=== PATIENT | female | born 1945 | race African-American/Black ===

== ENCOUNTER → 2019-03-03 | Outpatient (CLI) | payer MEDICARE, OTHER ==
[2016-09-02 15:00] VITALS: BP 132/72
[~2019-03-03] MED LIST: AMLO2.5T5 PO; ASCO500T PO; CLIN300C3 PO; CLON1TAB11 PO; CLON2TAB9 PO; DICL100G18 TP; DIPH25CA58 PO; LACT1CAP38 PO; LEVO500T59 PO; LITH300C PO; LITH300T30 PO; NIFE30TA17 PO; OXYB5TAB PO; PHEN100T82 PO; PROP20TA PO; SUVO10TA PO
--- NOTE | 2019-03-03 08:46 | RAD ---
EXAM: Right knee, 2 views. HISTORY: Pain. COMPARISON: None. FINDINGS: 2 views of the right knee are obtained. There is severe medial and patellofemoral compartment predominant tricompartmental spurring. There is medial compartment joint space narrowing. There is a moderate joint effusion. IMPRESSION: 1. Severe tricompartmental osteoarthritis of the right knee. 2. Moderate right knee effusion. Electronically signed by: Sahara Oh MD (03/03/2019 8:43 AM) [facility]
== END | disposition home or self-care (01) ==
LOC: PMG 07:54
PROVIDERS: ATTEND Family Medicine
DX: M17.11 Unilateral primary osteoarthritis, right knee (principal); M25.461 Effusion, right knee
CPT/HCPCS: 73560

== ENCOUNTER 2019-04-03 17:59 | Emergency (ER) | payer MEDICARE, OTHER ==
[~2019-04-03] VITALS: Ht 156.2 cm; Wt 76.8 kg
[~2019-04-03 17:59] MED LIST changes: +ASCO-219 PO; -ASCO500T PO; -OXYB5TAB PO; +OXYB5TAB2 PO
--- NOTE | 2019-04-03 18:30 | PHYS DOC ---
Past History Past Medical History: Other Past Surgical History: Other Alcohol Use: None Drug Use: None Adult General Chief Complaint Chief Complaint: MECHANICAL FALL HPI HPI 73-year-old female presents after fall at home. The patient was recently diagnosed with [place]'s disease. She had a car about 45 minutes ago and was walking across the yard. She tripped over her shoe and fell. The patient's granddaughter witnessed this most concerned she might hit her head on the edge of the sidewalk as she felt very close to sidewalk. The patient has a small 2 cm superficial laceration of the right parietal scalp. She denies dizziness, headache, vomiting. She has been able to get up and walk at baseline. The family was just advised to get checked out if she had any falls due to her [place]'s disorder. Review of Systems Review of Systems Constitutional: Denies fever or chills [] Eyes: Denies change in visual acuity, redness, or eye pain [] HENT: Denies nasal congestion or sore throat [] Respiratory: Denies cough or shortness of breath [] Cardiovascular: No additional information not addressed in HPI [] GI: Denies abdominal pain, nausea, vomiting, bloody stools or diarrhea [] : Denies dysuria or hematuria [] Musculoskeletal: Denies back pain or joint pain [] Integument: Laceration right scalp[] Neurologic: Denies headache, focal weakness or sensory changes [] Endocrine: Denies polyuria or polydipsia [] All other systems were reviewed and found to be within normal limits, except as documented in this note. Allergies Allergies Allergies Coded Allergies Type Severity Reaction Last Updated Verified egg Allergy Severe 06/10/16 Yes Penicillins Allergy Intermediate 06/09/16 Yes Sulfa (Sulfonamide Antibiotics) Allergy Intermediate 06/09/16 Yes aspirin Allergy Intermediate 06/09/16 Yes chocolate flavor Allergy Intermediate 06/09/16 Yes codeine Allergy Intermediate 06/09/16 Yes latex Allergy Intermediate 06/09/16 Yes diphenhydramine Allergy Mild anxiety 04/03/19 Yes Physical Exam Physical Exam Constitutional: Well developed, well nourished, no acute distress, non-toxic appearance. [] HENT: Normocephalic, bilateral external ears normal, oropharynx moist, no oral exudates, nose normal. [] Eyes: PERRLA, EOMI, conjunctiva normal, no discharge. [] Neck: Normal range of motion, no tenderness, supple, no stridor. [] Cardiovascular:Heart rate regular rhythm, no murmur [] Lungs & Thorax: Bilateral breath sounds clear to auscultation [] Abdomen: Bowel sounds normal, soft, no tenderness, no masses, no pulsatile masses. [] Skin: Centimeter superficial laceration of the right parietal scalp, bleeding controlled.[] Back: No tenderness, no CVA tenderness. [] Extremities: No tenderness, no cyanosis, no clubbing, ROM intact, no edema. [] Neurologic: Choria movements. Alert and oriented X 3, normal motor function, normal sensory function, no focal deficits noted. [] Psychologic: Affect normal, judgement normal, mood normal. [] EKG EKG [] Radiology/Procedures Radiology/Procedures [] Impressions: Exam: CT head INDICATION: Fall TECHNIQUE: Sequential axial images through the head were obtained without the administration of IV contrast. Comparisons: None FINDINGS: No focal parenchymal lesion or hemorrhage is identified. There is no midline shift or sulcal effacement. Patchy hypodensity within the periventricular white matter, representing chronic ischemic change similar to prior study. No acute vascular territory infarction is identified. Cormier-white distinction is preserved. The ventricular system is within normal limits without compression hydrocephalus. The basal cisterns are well maintained. There is extracranial soft tissue contusion in the right frontal scalp. The visualized portions of the paranasal sinuses and mastoid air cells are well-pneumatized. No acute fractures. IMPRESSION: Cranial soft tissue contusion in the right frontal scalp without underlying osseous or intracranial abnormality. Exposure: One or more of the following in the visualized dose reduction techniques were utilized for this examination: 1. Automated exposure control 2. Adjustment of the MA and/or KV according to patient size Use of iterative of reconstructive technique Electronically signed by: Nick Beckman MD (04/03/2019 7:08 PM) [facility] DICTATED AND SIGNED BY: NICK BECKMAN MD DATE: 04/03/191907 CC: JONATHAN WINTER DO; MARGARET GRAY MD ~ Course & Med Decision Making Course & Med Decision Making Pertinent Labs and Imaging studies reviewed. (See chart for details) The patient's head CT is negative. Her superficial wound has been cleaned. There was no bleeding. I do not believe repair such as skin glue or hetal as necessary. Patient is stable for discharge at this time. [] Dragon Disclaimer Dragon Disclaimer This electronic medical record was generated, in whole or in part, using a voice recognition dictation system. Departure Departure: Impression: Primary Impression: Fall from slip, trip, or stumble Disposition: 01 HOME, SELF-CARE Condition: STABLE Referrals: MARGARET GRAY MD (PCP) Patient Instructions: Fall Prevention and Home Safety, [id number] Problem Qualifiers Primary Impression: Fall from slip, trip, or stumble Encounter type: initial encounter Qualified Codes: W01.0XXA - Fall on same level from slipping, tripping and stumbling without subsequent striking against object, initial encounter JONATHAN WINTER DO Apr 03, 2019 18:29
[2019-04-03 19:05] VITALS: BP 131/79
--- NOTE | 2019-04-03 19:10 | RAD ---
Exam: CT head INDICATION: Fall TECHNIQUE: Sequential axial images through the head were obtained without the administration of IV contrast. Comparisons: None FINDINGS: No focal parenchymal lesion or hemorrhage is identified. There is no midline shift or sulcal effacement. Patchy hypodensity within the periventricular white matter, representing chronic ischemic change similar to prior study. No acute vascular territory infarction is identified. Cormier-white distinction is preserved. The ventricular system is within normal limits without compression hydrocephalus. The basal cisterns are well maintained. There is extracranial soft tissue contusion in the right frontal scalp. The visualized portions of the paranasal sinuses and mastoid air cells are well-pneumatized. No acute fractures. IMPRESSION: Cranial soft tissue contusion in the right frontal scalp without underlying osseous or intracranial abnormality. Exposure: One or more of the following in the visualized dose reduction techniques were utilized for this examination: 1. Automated exposure control 2. Adjustment of the MA and/or KV according to patient size Use of iterative of reconstructive technique Electronically signed by: Nick Melissa MD (04/03/2019 7:08 PM) [facility]
== END 2019-04-03 20:09 | disposition home or self-care (01) ==
LOC: ER 17:59
DX: S01.01XA Laceration without foreign body of scalp, initial encounter (principal); G10 Huntington's disease; Z88.6 Allergy status to analgesic agent; Z91.012 Allergy to eggs; Z88.5 Allergy status to narcotic agent; Z88.0 Allergy status to penicillin; Z88.2 Allergy status to sulfonamides; Z88.8 Allergy status to other drugs, medicaments and biological substances; Z91.018 Allergy to other foods; W01.0XXA Fall on same level from slipping, tripping and stumbling without subsequent striking against object, initial encounter; Y93.01 Activity, walking, marching and hiking; Y92.098 Other place in other non-institutional residence as the place of occurrence of the external cause; Y99.8 Other external cause status
CPT/HCPCS: 70450; 99284-25

== ENCOUNTER → 2019-06-10 | Outpatient (CLI) | payer MEDICARE, OTHER ==
--- NOTE | 2019-06-10 17:57 | RAD ---
Examination: KNEE RIGHT 2V, TIBIA FIBULA RIGHT History: Right knee pain Comparison/Correlation: 03/03/2019 bilateral knee x-ray exam Findings: 3 view right knee x-ray exam was performed. Two-view right tibia-fibula x-ray exam was performed. Moderate sized knee joint effusion is present. Patellofemoral compartment degenerative remodeling and spurring is notable. Severe medial compartment narrowing of the right knee joint is present with varus deformity. Spurring is notable in tricompartmental distribution. No significant lateral compartment narrowing. No fracture or bony destructive findings. Impression: Advanced degenerative changes of the right knee particularly at the medial and patellofemoral compartments. Tricompartmental spurring is severe. Electronically signed by: Georgi Gonsalves MD (06/10/2019 5:54 PM) [facility]
--- NOTE | 2019-06-10 17:57 | RAD ---
Examination: KNEE RIGHT 2V, TIBIA FIBULA RIGHT History: Right knee pain Comparison/Correlation: 03/03/2019 bilateral knee x-ray exam Findings: 3 view right knee x-ray exam was performed. Two-view right tibia-fibula x-ray exam was performed. Moderate sized knee joint effusion is present. Patellofemoral compartment degenerative remodeling and spurring is notable. Severe medial compartment narrowing of the right knee joint is present with varus deformity. Spurring is notable in tricompartmental distribution. No significant lateral compartment narrowing. No fracture or bony destructive findings. Impression: Advanced degenerative changes of the right knee particularly at the medial and patellofemoral compartments. Tricompartmental spurring is severe. Electronically signed by: Georgi Gonsalves MD (06/10/2019 5:54 PM) [facility]
== END | disposition home or self-care (01) ==
LOC: EDBD 11:54 → PMG 11:54
PROVIDERS: ATTEND Family Medicine
DX: S89.91XA Unspecified injury of right lower leg, initial encounter (principal); M17.11 Unilateral primary osteoarthritis, right knee; M25.461 Effusion, right knee; M25.861 Other specified joint disorders, right knee; M76.891 Other specified enthesopathies of right lower limb, excluding foot; W19.XXXA Unspecified fall, initial encounter; Y93.89 Activity, other specified; Y92.89 Other specified places as the place of occurrence of the external cause; Y99.8 Other external cause status
CPT/HCPCS: 73560; 73590

== ENCOUNTER 2019-08-14 19:01 | Emergency (ER) | payer MEDICARE, OTHER ==
[~2019-08-14] VITALS: Ht 156.2 cm; Wt 76.8 kg
[~2019-08-14 19:01] MED LIST changes: -NIFE30TA17 PO; +NIFE30TA95 PO; +OXYB-36 PO; -OXYB5TAB2 PO
--- NOTE | 2019-08-14 19:07 | PHYS DOC ---
Past History Past Medical History: Hypertension, Other Additional Past Medical Histor: remington disease Past Surgical History: Other Alcohol Use: None Drug Use: None Adult General Chief Complaint Chief Complaint: ".. I was walking... I tripped... "I fell.." ".. I hit...my head..... cabnet..."...".. We seen her fall.. it was yuly of glancing blow to top of her head.. she did nt black out or anything... but it keep bleeding... " ( Daughters) [facility] HPI Patient is a 74 year old female who presents with above hx and complaints of head injury. Pt. denies loss of consciousness. Has Laceration top of scalp with hematoma. Laceration is approximately 4 cm with surrounding hematoma. Pt. had medical hx. [place], dementia, hypertension and gait disorder. Pt. follows with Dr. Bentley. History of travel. No history immunosuppression. No history of change in meds. Unsure of last tetanus vaccination Review of Systems Review of Systems Constitutional: Denies fever or chills [] Eyes: Denies change in visual acuity, redness, or eye pain [] HENT: Denies nasal congestion or sore throat [] Respiratory: Denies cough or shortness of breath [] Cardiovascular: No additional information not addressed in [facility] [] GI: Denies abdominal pain, nausea, vomiting, bloody stools or diarrhea [] : Denies dysuria or hematuria [] Musculoskeletal: Denies back pain or joint pain [] Integument: Denies rash or skin lesions [] Neurologic: Complaints of headache at the site of laceration, denies, focal weakness or sensory changes [] Endocrine: Denies polyuria or polydipsia [] All other systems were reviewed and found to be within normal limits, except as documented in this note. Family History Family History Noncontributory to presentation Current Medications Current Medications Nursing for home medications Allergies Allergies Allergies Coded Allergies Type Severity Reaction Last Updated Verified egg Allergy Severe 06/10/16 Yes Penicillins Allergy Intermediate 06/09/16 Yes Sulfa (Sulfonamide Antibiotics) Allergy Intermediate 06/09/16 Yes aspirin Allergy Intermediate 06/09/16 Yes chocolate flavor Allergy Intermediate 06/09/16 Yes codeine Allergy Intermediate 06/09/16 Yes latex Allergy Intermediate 06/09/16 Yes diphenhydramine Allergy Mild anxiety 04/03/19 Yes Physical Exam Physical Exam Constitutional: Moderate acute distress, non-toxic appearance. [] HENT: Normocephalic, 4 cm laceration and surrounding hematoma on top of head, blood in left external ear,, no blood in TMs, oropharynx moist, no oral exudates, nose normal. [] Eyes: PERRLA, EOMI, conjunctiva normal, no discharge. Arcus Neck: Normal range of motion, no tenderness, supple, no stridor. [] Cardiovascular:Heart rate regular rhythm, no murmur. PMI to the left Lungs & Thorax: Bilateral breath sounds bibasally wheezing auscultation [] Abdomen: Bowel sounds normal, soft, no tenderness, no masses, no pulsatile masses. Old scar . Skin: Warm, dry, no erythema, no rash. [] Complaints of laceration. Back: No tenderness, no CVA tenderness. [] Extremities: No tenderness, no cyanosis, no clubbing, ROM intact, no edema. [] Neurologic: Alert and oriented X 3, distal motor and sensory, no new gross focal deficits noted by family. []Wide gait. Discoordinated. Tremor Psychologic: Affect anxious, judgement impaired, mood normal. [] EKG EKG [] Radiology/Procedures Radiology/Procedures [][place] [address] IMAGING REPORT Signed PATIENT: RAGHU ASTORGA ACCOUNT: [id number] : 1945 LOCATION: ER AGE: 74 SEX: F EXAM STATUS: REG ER ORD. PHYSICIAN: RAMIREZ DAI MD REASON: head injury, HIT TOP OF HEAD, H/O [place]'S DISEASE. PROCEDURE: CT HEAD AND CERVICAL SPINE WO Exam: CT head and cervical spine without contrast INDICATION: Head injury TECHNIQUE: Sequential axial images through the head and cervical spine were obtained without the administration of IV contrast. Comparisons: None FINDINGS: Head: No focal parenchymal lesion or hemorrhage is identified. There is no midline shift or sulcal effacement. Patchy hypodensity in the periventricular white matter, similar when compared to the prior study. No acute vascular territory infarction is identified. Cormier-white distinction is preserved. The ventricular system is within normal limits without compression hydrocephalus. The basal cisterns are well maintained. The visualized portions of the paranasal sinuses and mastoid air cells are well-pneumatized. No acute fractures. Cervical spine: Evaluation is markedly limited secondary to extensive patient motion despite repeat scans. No fracture identified at C2, C3 or C4. Remainder of the cervical spine is unable to be evaluated. IMPRESSION: 1. No acute intracranial abnormality. 2. Evaluation of the cervical spine is markedly limited secondary to extensive patient motion despite repetitive scans. No apparent fracture is identified. Repeat imaging when patient's condition improves is recommended to reassess. Exposure: One or more of the following in the visualized dose reduction techniques were utilized for this examination: 1. Automated exposure control 2. Adjustment of the MA and/or KV according to patient size Use of iterative of reconstructive technique Electronically signed by: Nick Beckman MD (08/14/2019 9:09 PM) [facility] [place] [facility] DICTATED AND SIGNED BY: NICK BECKMAN MD DATE: 08/14/192108 CC: RAMIREZ DAI MD; MARGARET BENTLEY MD ~ Course & Med Decision Making Course & Med Decision Making Pertinent Labs and Imaging studies reviewed. (See chart for details) Suture note- 4 cm- scalp- area of laceration clean with normal saline and Betadine.. Injected laceration with 2% lidocaine. Reirrigated laceration with normal saline. Closed with 7 simple 3-0 Vicryl stitches sutures. Patient keep area clean and dry. Sutures will degrade with time. No direct water. Polysporin 4 times a day. Return if any concerns. Follow-up primary care. Polysporin to laceration site 4 x day. No direct water. Sutures will dissolve with time and inflammation. Return if any concerns. Follow up with primary. Head injury precaution. May use peroxide to clean hair and wound. Head injury precautions 1. Trip and Fall 2. Head Injury 3. 4 cm Laceration or centimeters top of the scalp [] Dragon Disclaimer Dragon Disclaimer This electronic medical record was generated, in whole or in part, using a voice recognition dictation system. Departure Departure: Disposition: 01 HOME/RESIDENCE PRIOR TO ADM Condition: STABLE Referrals: MARGARET BENTLEY MD (PCP) Dragon Disclaimer This chart was dictated in whole or in part using Voice Recognition software in a busy, high-work load, and often noisy Emergency Department environment. It may contain unintended and wholly unrecognized errors or omissions. RAMIREZ DAI MD Aug 14, 2019 19:07
[2019-08-14] MEDS ORDERED: DIPHTH,PERTUSS(ACELL),TET TOX 0.5 ML DISP.SYRIN. VAX IM ONE (19:45)
[2019-08-14] MEDS ORDERED: LIDOCAINE 2% 20 ML VIAL. IJ ONE (19:45)
[2019-08-14 20:32] VITALS: BP 156/87
--- NOTE | 2019-08-14 21:12 | RAD ---
Exam: CT head and cervical spine without contrast INDICATION: Head injury TECHNIQUE: Sequential axial images through the head and cervical spine were obtained without the administration of IV contrast. Comparisons: None FINDINGS: Head: No focal parenchymal lesion or hemorrhage is identified. There is no midline shift or sulcal effacement. Patchy hypodensity in the periventricular white matter, similar when compared to the prior study. No acute vascular territory infarction is identified. Cormier-white distinction is preserved. The ventricular system is within normal limits without compression hydrocephalus. The basal cisterns are well maintained. The visualized portions of the paranasal sinuses and mastoid air cells are well-pneumatized. No acute fractures. Cervical spine: Evaluation is markedly limited secondary to extensive patient motion despite repeat scans. No fracture identified at C2, C3 or C4. Remainder of the cervical spine is unable to be evaluated. IMPRESSION: 1. No acute intracranial abnormality. 2. Evaluation of the cervical spine is markedly limited secondary to extensive patient motion despite repetitive scans. No apparent fracture is identified. Repeat imaging when patient's condition improves is recommended to reassess. Exposure: One or more of the following in the visualized dose reduction techniques were utilized for this examination: 1. Automated exposure control 2. Adjustment of the MA and/or KV according to patient size Use of iterative of reconstructive technique Electronically signed by: Nick Melissa MD (08/14/2019 9:09 PM) [facility]
[2019-08-15] MEDS ORDERED: LIDOCAINE 2% 20 ML VIAL. ONE (00:31)
== END 2019-08-14 21:34 | disposition home or self-care (01) ==
LOC: ER 19:01
DX: S01.01XA Laceration without foreign body of scalp, initial encounter (principal); I10 Essential (primary) hypertension; Z88.0 Allergy status to penicillin; Z88.2 Allergy status to sulfonamides; Z88.5 Allergy status to narcotic agent; Z91.040 Latex allergy status; Z91.018 Allergy to other foods; Z91.012 Allergy to eggs; W01.198A Fall on same level from slipping, tripping and stumbling with subsequent striking against other object, initial encounter; Y93.01 Activity, walking, marching and hiking; Y92.89 Other specified places as the place of occurrence of the external cause; Y99.8 Other external cause status
CPT/HCPCS: 12002; 70450; 72125; 90471; 90715; 99284; J2001

== ENCOUNTER → 2019-09-26 | Outpatient (CLI) | payer MEDICARE, OTHER ==
[2019-09-26 15:59] LABS: BASO # 0.1 x10^3/uL (0.0-0.2); BASO % 1 % (0-3); EOS # 0.2 x10^3/uL (0.0-0.7); EOS % 2 % (0-3); LYMPH # 2.4 x10^3/uL (1.0-4.8); LYMPH % 23 % (24-48); MEAN CORPUSCULAR HEMOGLOBIN 28 pg (25-35); MEAN CORPUSCULAR HGB CONC 31 g/dL (31-37); MEAN CORPUSCULAR VOLUME 90 fL (79-100); MONO # 0.8 x10^3/uL (0.0-1.1); MONO % 8 % (0-9); NEUT # 6.7 x10^3uL (1.8-7.7); NEUT % 66 % (31-73); PLATELET COUNT 271 x10^3/uL (140-400); RED BLOOD COUNT 4.21 x10^6/uL (3.50-5.40); WHITE BLOOD COUNT 10.1 x10^3/uL (4.0-11.0)
[2019-09-26 16:08] LABS: ALBUMIN 3.6 g/dL (3.4-5.0); ALBUMIN/GLOBULIN RATIO 0.9 (1.0-1.7); C REACTIVE PROTEIN 65.2 mg/L (0-3.3); CREATININE 0.9 mg/dL (0.6-1.0); GFR 73.9; POTASSIUM 3.9 mmol/L (3.5-5.1); TOTAL BILIRUBIN 0.8 mg/dL (0.2-1.0); TOTAL PROTEIN 7.8 g/dL (6.4-8.2)
--- NOTE | 2019-09-26 16:19 | RAD ---
Exam: CT abdomen and pelvis without contrast INDICATION: Nausea vomiting, unable to eat for 4 days TECHNIQUE: Sequential axial images through the abdomen and pelvis obtained without IV contrast. Sagittal and coronal reformatted images were reconstructed from the axial data and reviewed. Comparisons: None FINDINGS: Heart size is normal. There is a small pericardial effusion. Strandy opacities the lung bases bilaterally, likely atelectasis. No pleural effusion. Evaluation of the solid organs is limited secondary to noncontrast technique. Liver, spleen, pancreas, gallbladder and adrenals are unremarkable. No perinephric inflammation or hydronephrosis. No renal or ureteral calculi are identified. Bladder is partially distended and not well evaluated. Uterus is absent. No abnormal adnexal mass. A few scattered diverticula noted throughout the colon with mild inflammatory fat stranding at the posterior aspect of the ascending colon. Appendix is normal. No free intra-abdominal air or fluid. No obstruction. Abdominal aorta has a normal course and caliber. No enlarged abdominal lymph nodes are identified. No suspicious osseous lesions or acute fractures. IMPRESSION: Few scattered diverticula in the colon with mild fat stranding adjacent to some diverticula in the ascending colon. Findings may relate to a mild diverticulitis. No evidence for perforation or abscess. Exposure: One or more of the following in the visualized dose reduction techniques were utilized for this examination: 1. Automated exposure control 2. Adjustment of the MA and/or KV according to patient size 3. Use of iterative of reconstructive technique FOR INTERNAL CODING PURPOSES Critical result: Findings discussed with RUBEN KHOURY at 09/26/2019 4:14 PM. RESULT CODE: (C) Electronically signed by: Nick Melissa MD (09/26/2019 4:16 PM) [id number]
[2019-09-27 02:07] LABS: HEMOGLOBIN A1C 6.5 % (4.8-5.6)
== END | disposition home or self-care (01) ==
LOC: CT 15:13
PROVIDERS: ATTEND Registered Nurse
DX: K57.30 Diverticulosis of large intestine without perforation or abscess without bleeding (principal); I31.3 Pericardial effusion (noninflammatory); N32.89 Other specified disorders of bladder
CPT/HCPCS: 36415; 74176; 80053; 82150; 83036; 83690; 85025; 86140

== ENCOUNTER 2021-03-25 11:41 | Emergency (ER) | payer MEDICARE, OTHER ==
[~2021-03-25] VITALS: Ht 156.2 cm; Wt 76.8 kg
[~2021-03-25 11:41] MED LIST changes: -ASCO-219 PO; +ASCO500T53 PO
--- NOTE | 2021-03-25 12:35 | PHYS DOC ---
Past History Past Medical History: Hypertension, Other Additional Past Medical Histor: kelly disease Past Surgical History: , Hysterectomy, Other Alcohol Use: None Drug Use: None Adult General Chief Complaint Chief Complaint: UPPER EXTREMITY PAIN HPI HPI Patient is a 75-year-old female who presents with daughter who is primary caregiver for a fall. 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 Daughter who takes care of patient reports that she was attempting to transfer from wheelchair to bed when patient accidentally fell forward landing on her right arm. She did not hit her head, no loss of consciousness or other concerning sequelae from fall such as nausea or vomit or reported vision changes noted. Patient had excruciating pain focal to right upper extremity with palpable abnormality which concerned daughter prompting her to bring patient in for evaluation. Review of Systems Review of Systems Fourteen body systems of review of systems have been reviewed. See HPI for pertinent positives and negative responses, other antonio all other systems are negative, non-pertinent or non-contributory Allergies Allergies Allergies Coded Allergies Type Severity Reaction Last Updated Verified egg Allergy Severe 06/10/16 Yes Penicillins Allergy Intermediate 06/09/16 Yes Sulfa (Sulfonamide Antibiotics) Allergy Intermediate 06/09/16 Yes aspirin Allergy Intermediate 06/09/16 Yes chocolate flavor Allergy Intermediate 06/09/16 Yes codeine Allergy Intermediate 06/09/16 Yes latex Allergy Intermediate 06/09/16 Yes diphenhydramine Allergy Mild anxiety 04/03/19 Yes Physical Exam Physical Exam Constitutional: Patient is age-appropriate. Physically deconditioned and wheelchair and appears in pain. Has spastic movements consistent with known diagnosis of Kelly's disease HEENT: Head: Normocephalic and atraumatic. External ears unremarkable, negative gutiérrez sign Conjunctivae and EOM are normal. Pupils are equal, round, and reactive to light. Oropharynx is clear and moist. No hematomas or lacerations or abrasions to face or scalp OP clear, no blood, no malocclusion, dentition intact Nares clear, no nasal septal hematoma Midface stable Neck: C-spine midline nontender, no step-offs Cardiovascular: Normal rate, regular rhythm and normal heart sounds. Pulmonary/Chest: Effort normal and breath sounds normal. No respiratory distress. No wheezes. CTA bilaterally Abdominal: Soft. Bowel sounds are normal. Pt exhibits no distension. There is no tenderness. Musculoskeletal: Palpable bony tenderness and deformity present to right upper extremity near shoulder with limited range of motion of right shoulder joint in all planes due to pain Chest wall stable Pelvis stable and non-tender No vertebral TTP and spine without stepoffs Neurological: Pt is alert and oriented to person, place, and time. Moving all extremities willfully, able to wiggle all fingers and toes Alert and oriented x 3 Motor and sensory function intact Cranial nerves II through XII intact Spastic movements consistent with known diagnosis of Shelby's throughout entirety of exam Downgoing toes bilaterally with stimulation Skin: Skin is warm and dry. No abrasions, no lacerations Psychiatric: Behavior is appropriate for situation Current Patient Data Vital Signs Vital Signs Date Time Temp Pulse Resp B/P (MAP) Pulse Ox O2 Delivery O2 Flow Rate FiO2 03/25/21 12:10 97.7 62 20 137/108 93 Room Air EKG EKG [] Radiology/Procedures Radiology/Procedures AP chest. HISTORY: Fractured humerus AP view was taken of the chest. Patient's taken a poor inspiration. There is elevation the right diaphragm. There are no acute infiltrates. 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 There is no definite effusion. IMPRESSION: 1. Elevated right diaphragm. 2. No acute infiltrates. Electronically signed by: Mt Gracia MD (03/25/2021 1:13 PM) [facility] //////////////////////////// Right humerus 2 views, right forearm 2 views HISTORY: Pain after a fall Right forearm 2 views were taken of the left forearm. There is not evidence of an acute fracture. The elbow is incompletely evaluated. 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 If the elbow is concern additional views would be of benefit. IMPRESSION: 1. No fracture noted in the right forearm although incomplete evaluation the elbow. End impression, right humerus 2 views were taken of the right humerus. There is a comminuted fracture of the mid to proximal right humerus. There is mild displacement. IMPRESSION: 1. Fracture right humerus. Electronically signed by: Mt Gracia MD (03/25/2021 1:08 PM) [facility] /////////////////////////////////// INDICATION: Reason: post reduction - Dr Butt, ER - wanted the 1 view / Spl. Instructions: / History: COMPARISON: Same day IMPRESSION: Right humerus: Single view obtained. Comminuted fracture is identified at the diaphysis of the right humerus with mild displacement. Electronically signed by: José Miguel Nugent MD (03/25/2021 2:40 PM) [id number] Heart Score C/O Chest Pain: No Risk Factors: Risk Factors: DM, Current or recent (<one month) smoker, HTN, HLP, family history of CAD, obesity. Risk Scores: Risk Factors: DM, Current or recent (<one month) smoker, HTN, HLP, family history of CAD, obesity. Course & Med Decision Making Course & Med Decision Making Vitals stable. HPI physical exam and comprehensive ER work-up concerning for closed right humeral head fracture There is no emergent or surgical indication for hospital transfer for fixation in an elderly patient who would be a poor surgical candidate. I disclosed this with daughter who also agreed. As such, decision made to put patient in a sling immobilizer and follow-up with outpatient orthopedic services IM fentanyl administered and patient's right upper extremity placed in a sling immobilizer. A repeat x-ray was performed to ensure adequate positioning of bone due to patient's constant spastic Shelby's disease movements and concern for worsened malalignment I again reiterated need for close outpatient orthopedic follow-up with daughter who verbalized understanding. All questions and concerns addressed. I disclosed patient takes benzodiazepines but will also be in pain. She is high risk for concomitant benzodiazepine and narcotic use Caregiver knowledgeable on this. Instructions were made to start with extremely low-dose of narcotic pain medication, I advised cutting pills in half to see how patient tolerated both to avoid respiratory depression or possible . Patient's daughter again understood and verbalized instructions given and accepted prescription for such medication. Strict return precautions were disc ussed, all questions and concerns addressed prior to your departure [employer] Disclaimer Dragon Disclaimer This electronic medical record was generated, in whole or in part, using a voice recognition dictation system. Departure Departure: Impression: Primary Impression: Comminuted right humeral fracture Disposition: HOME / SELF CARE / HOMELESS Condition: STABLE Referrals: MARGARET GRAY MD (PCP) RAMIREZ RAMOS MD Additional Instructions: You were seen for a fracture or broken bone to your right arm. You need to be seen and followed up in the outpatient setting with our local orthopedic clinic, Dr. Ramos's information is attached. It is imperative that you contact your office immediately after ER departure and discuss with them that you had a " closed comminuted fracture to the mid to proximal right humerus". You should not use the affected body part until you follow up with orthopedics. You should use ice, prescribed pain medications, and elevation to help with swelling and pain. Return to the ED if you develop worsening pain, numbness, tingling, weakness, fever, redness, or any other new or concerning symptoms. Scripts Hydrocodone Bit/Acetaminophen (HYDROCODONE-APAP 7.5-325 ) 1 Each Tablet 1 TAB PO PRN Q6HRS PRN for PAIN, #20 TAB 0 Refills Prov: CHAYO BUTT DO 03/25/21 CHAYO BUTT DO Mar 25, 2021 12:35
--- NOTE | 2021-03-25 13:11 | RAD ---
Right humerus 2 views, right forearm 2 views HISTORY: Pain after a fall Right forearm 2 views were taken of the left forearm. There is not evidence of an acute fracture. The elbow is inco mpletely evaluated. 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 If the elbow is concern additional vi ews would be of benefit. IMPRESSION: 1. No fracture noted in the right forearm although incomplete evaluation the elbow. End impression, right humerus 2 views were taken of the right humerus. There is a comminuted fracture of the mid to proximal right humerus. There is mild displacement. IMPRESSION: 1. Fracture right humerus. Electronically signed by: Mt Gracia MD (03/25/2021 1:08 PM) [facility]
--- NOTE | 2021-03-25 13:15 | RAD ---
AP chest. HISTORY: Fractured humerus AP view was taken of the chest. Patient's taken a poor inspiration. There is elevation the right diap hragm. There are no acute infiltrates. 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 There is no definite effu diomedes. IMPRESSION: 1. Elevated right diaphragm. 2. No acute infiltrates. Electronically signed by: Mt Gracia MD (03/25/2021 1:13 PM) [facility]
[2021-03-25] MEDS ORDERED: HYDR-2765 PO ×2 (13:35→15:19)
[2021-03-25 14:36] VITALS: BP 109/73
--- NOTE | 2021-03-25 14:43 | RAD ---
INDICATION: Reason: post reduction - Dr Beltran, ER - wanted the 1 view / Spl. Instructions: / History: COMPARISON: Same day IMPRESSION: Right humerus: Single view obtained. Comminuted fracture is identified at the diaphysis of the right humerus with mild displacement. Electronically signed by: José Miguel Nugent MD (03/25/2021 2:40 PM) [id number]
== END 2021-03-25 14:41 | disposition home or self-care (01) ==
LOC: ER 11:41
DX: S42.201A Unspecified fracture of upper end of right humerus, initial encounter for closed fracture (principal); I10 Essential (primary) hypertension; G10 Huntington's disease; Z99.3 Dependence on wheelchair; Z91.012 Allergy to eggs; Z88.0 Allergy status to penicillin; Z88.2 Allergy status to sulfonamides; Z88.6 Allergy status to analgesic agent; Z91.040 Latex allergy status; Z88.8 Allergy status to other drugs, medicaments and biological substances; Z91.018 Allergy to other foods; W18.39XA Other fall on same level, initial encounter; Y93.89 Activity, other specified; Y92.89 Other specified places as the place of occurrence of the external cause; Y99.8 Other external cause status
CPT/HCPCS: 29105; 71045; 73060; 73090; 96372; 99284; J3010